=== PATIENT | male | born 1955 | race Caucasian/White ===

== ENCOUNTER 2025-04-20 07:42 | Day surgery (SDC) | payer MEDICARE, MEDICAID ==
[~2025-04-20] VITALS: Ht 165.1 cm; Wt 61.7 kg
[~2025-04-20 07:42] MED LIST: DOCUMENT DATE & TIME OF BETA-BLOCKER PO ONE; FLUT1BLS4 PO; PRED5DRO26 LEFTEYE; ROSU20TA98 PO; TIMO5DRO15 LEFTEYE; ringers solution, lacted 1,000 ML IV SCH
[2025-04-20] MEDS ORDERED: LIDOcaine 2% Viscous 15ml cup ONE (08:00)
[2025-04-20 09:00] VITALS: BP 113/61; PULSE 56; RESP 16; TEMP 97.5; O2SAT 98
[2025-04-20] MEDS ORDERED: MIDAZolam 1 MG/ML 5ML VIAL ONE (10:22)
[2025-04-20] MEDS ORDERED: fentaNYL/PF 50MCG/1 ML 2ML syringe ONE (10:24)
[2025-04-20 11:10] VITALS: BP 98/67; PULSE 58; RESP 14; O2SAT 98
[2025-04-20 11:20] VITALS: BP 107/64; PULSE 56; RESP 15; O2SAT 95
[2025-04-20 11:30] VITALS: BP 98/63; PULSE 55; RESP 15; O2SAT 95
[2025-04-20 11:40] VITALS: BP 112/65; PULSE 55; RESP 16; O2SAT 94
[2025-04-20 11:50] VITALS: BP 115/64; PULSE 54; RESP 15; O2SAT 95
== END 2025-04-20 12:00 | disposition home or self-care (01) ==
LOC: PRE-OP 07:42
PROVIDERS: ATTEND Internal Medicine Gastroenterology
DX: K21.9 Gastro-esophageal reflux disease without esophagitis (principal); K57.90 Diverticulosis of intestine, part unspecified, without perforation or abscess without bleeding; E78.5 Hyperlipidemia, unspecified; N40.0 Benign prostatic hyperplasia without lower urinary tract symptoms; Z88.8 Allergy status to other drugs, medicaments and biological substances
CPT/HCPCS: 43239; 88305; 88342; A4620; J2250; J3010; J7120; Z7512; Z7610; 99152